=== PATIENT | male | born 1970 | race Caucasian/White ===

== ENCOUNTER 2019-08-04 10:20 | Day surgery (SDC) | payer BC ==
[2019-08-04] VITALS (8 sets, daily range): BP systolic 117–130; BP diastolic 69–83; PULSE 73–95; TEMP 97.2–98.7
[~2019-08-04] VITALS: Ht 193 cm; Wt 75.5 kg
--- NOTE | 2019-08-04 11:15 | NUR ---
Nataly Bravo, at bedside per patient's request from yesterday's H&P telephone call.
--- NOTE | 2019-08-04 11:27 | NUR ---
Initial visit; Patient thanked International Controller for looking in on him and offering encouragement and prayer prior to his 'procedure.'
[2019-08-04] MEDS ORDERED: MOTRIN 600600 MG/TAB PO (15:55)
[2019-08-04] MEDS ORDERED: NORCO 325 MG-51 TAB PO (15:56)
[2019-08-04] MEDS ORDERED: COLACE 100100 MG/CAP PO (15:57)
[2019-08-04] MEDS ORDERED: Work Release (16:02)
--- NOTE | 2019-08-04 16:10 | NUR ---
Pt arrived to [facility] from PACU via cart with DONTAE Orozco. Pt awake, alert, and oriented. VSS and within normal limits. Pt does report some mild pain in abdomen 2/10 on the pain scale. Pt reports that this pain level is bearable. Call light within reach and water at pt's bedside.
--- NOTE | 2019-08-04 16:15 | NUR ---
Pt resting comfortably, pain level consistent. No complaints or concerns or questions. Pt , Ivett, to pharmacy to get prescriptions.
--- NOTE | 2019-08-04 16:30 | NUR ---
Pt resting comfortably call light within reach.
--- NOTE | 2019-08-04 16:45 | NUR ---
Patient reports pain is stable at 2/10. Denies any other concerns. at bedside with prescriptions.
--- NOTE | 2019-08-04 17:00 | NUR ---
Pt drinking cranberry juice pleasantly in bed. at bedside.
--- NOTE | 2019-08-04 17:15 | NUR ---
Does well forcing fluids and denies need for pain medication. Spouse in room.
--- NOTE | 2019-08-04 17:20 | NUR ---
Up to the bathroom and voids. Tolerates activity well and denies need for pain medication. IV to INT.
--- NOTE | 2019-08-04 17:35 | NUR ---
Given dismissal instructions and voices understanding of these. Able to dress self.
--- NOTE | 2019-08-04 17:45 | NUR ---
Patient dismissed to home per private vehicle driven spouse and taken to the front door per wheelchair and assisted into car by Brie DIGGS with dismissal instructions in hand.
== END 2019-08-04 17:45 | disposition home or self-care (01) ==
LOC: SDCO 10:20
DX: K40.90 Unilateral inguinal hernia, without obstruction or gangrene, not specified as recurrent (principal); Z80.41 Family history of malignant neoplasm of ovary; Z80.0 Family history of malignant neoplasm of digestive organs; Z80.3 Family history of malignant neoplasm of breast; Z83.49 Family history of other endocrine, nutritional and metabolic diseases
CPT/HCPCS: C1781; J0690; J1100; J2250; J2405; J2704; J2765; J3010; J7120